=== PATIENT | male | born 1965 | race Caucasian/White ===

== ENCOUNTER 2019-08-03 19:17 | Emergency (ER) | payer SELFPAY ==
[2019-08-03 19:17] VITALS: BP 161/111; PULSE 90; RESP 16; TEMP 36.8; O2SAT 99; BMI 32.8
--- NOTE | 2019-08-03 19:57 | CT_ITS ---
STUDY: CT ABDOMEN AND PELVIS WITHOUT CONTRAST REASON FOR EXAM: Male, 54 years old. Flank pain RADIATION DOSAGE (If Supplied By Facility): DLP = ( 1060.52 ) mGycm TECHNIQUE: Transaxial images were obtained from the dome of the diaphragm to the symphysis pubis without oral contrast, and without intravenous contrast. Sagittal and coronal images were reconstructed. Individualized dose optimization techniques were used for this CT. COMPARISON: None. FINDINGS: Evaluation of the abdominal viscera is limited in the absence of intravenous contrast. The visualized lung bases are clear. The visualized portions of the heart and pericardium are within normal limits. The gallbladder contains gallstones. There is decreased hepatic attenuation. No hepatic lesions are present. The spleen is normal in size. The pancreas demonstrates an unremarkable unenhanced appearance. The adrenal glands are within normal limits. There is a 4 mm obstructing left proximal ureteral stone with associated moderate to prominent hydroureteronephrosis. The right kidney is normal in appearance. Normal visualized stomach. There is no bowel obstruction or inflammation. Partial colon resection noted. The appendix is not visualized, but there are no findings to suggest acute appendicitis. The aorta is normal in caliber. There is no abdominal or pelvic free air, free fluid, fluid collection or lymphadenopathy. There are no destructive osseous lesions. CT/Abdomen/Pelvis without Cont IMPRESSION: 4 mm obstructing left proximal ureteral stone with associated moderate to prominent hydroureteronephrosis. Gallstones. Electronically Signed: Xu Owen, at 20:59 EDT Tel , Service support ,
[2019-08-03 20:13] LABS: Absolute Lymphocyte Count 2.64 X10^3/uL (0.83-4.51); Absolute Neutrophil Count 4.5 X10^3/uL (2.0-7.7); Basophil# 0.06 X10^3/uL; Basophil% 0.7 % (0-1); Eosinophil# 0.18 X10^3/uL; Eosinophils% 2.2 % (0-5); Hematocrit 43.8 % (40-54); Hemoglobin 14.6 g/dL (13.0-16.5); Lymphocyte # 2.64 X10^3/ul (4.0); Lymphocyte % 32.9 % (19-41); Mean Corp Hgb Conc 33.3 g/dL (32-36); Mean Corpuscular Volume 90.1 fL (80-94); Mean Platelet Vol. 9.5 fl (6.2-12.0); Monocyte# 0.66 X10^3/uL; Monocyte% 8.2 % (0-10); NRBC Flagged by Analyzer 0 % (0-5); Neutrophil # 4.45 X10^3/uL (2.7-7.7); Neutrophil % 55.6 % (47-70); Platelet Count 258 K/mm3 (150-450); RBC Distribution Width CV 13.3 % (11.6-14.6); Red Blood Count 4.86 M/mm3 (4.6-6.2)
[2019-08-03] MEDS: Ondansetron 4 MG/2 ML Vial IV (20:20)
[2019-08-03] MEDS: Morphine 4 MG/ML Syringe IV (20:20)
[2019-08-03] MEDS: Ketorolac 30 MG/ML Syringe IV (20:20)
[2019-08-03] MEDS: 0.9% Normal Saline 1,000 ML 250 ML IV (20:20)
[2019-08-03 20:26] LABS: Anion Gap 7 (5-15); BUN 14 mg/dL (7-18); Calcium,Total 9.4 mg/dL (8.5-10.1); Chloride 110 mmol/L (98-107); Creatinine, Serum 1.55 mg/dL (0.70-1.30); EST Glomerular Filtration Rate 50 mL/min (>60); Est Glom Filt Rate - Afr Amer 60 mL/min (>60); Glucose 139 mg/dL (74-106); Potassium 3.9 mmol/L (3.5-5.1); Sodium Level 142 mmol/L (136-145)
[2019-08-03 21:15] LABS: Bacteria 0 SEEN /hpf (None Seen); Mucous, Urine 0 SEEN /hpf (<or=2+)
[2019-08-03 21:17] VITALS: BP 145/89; PULSE 83; RESP 15; O2SAT 96
[2019-08-03 21:18] LABS: Color, Urine Yellow (Yellow); Glucose, Dipstick Normal (Normal); Ketone-Dipstick Negative (Negative); Leukocyte Esterase-Dipstick 25 /ul (Negative); Nitrite-Dipstick Negative (Negative); Occult Blood-Urine 250 /ul (Negative); Protein-Dipstick 30 mg/dl (Negative); Specific Gravity, Urine 1.025 (1.002-1.030); Urine Bilirubin Dipstick Negative (Negative); Urine Clarity Cloudy (Clear); Urine Urobilinogen Normal (Normal)
[2019-08-03 21:25] LABS: White Blood Cells 0-5 SEEN /hpf (0-5)
[2019-08-03 21:26] LABS: Red Blood Cells-Urine 50-100 SEEN /hpf (0-5); Squamous Epithelial Cells - UA 0-5 SEEN /hpf (0-5)
--- NOTE | 2019-08-03 21:41 | ED.DCSUM_ITS ---
- ER Visit Summary Date of Service: 08/03/19 Chief Complaint: Flank pain History of Present Illness: The patient is a 54 M who states that today is sudden onset of left flank pain sharp and stabbing and severe. He said nausea. He has not had symptoms like this before. He does have a history of diverticul itis and states that this is different. He notes his urine has been darker than normal today. Physical Examination: Afebrile vital signs stable Gen: Well-nourished well-developed she appears quite uncomfortable Head: Normocephalic atraumatic Eyes: Perrl EOMI ENT: TMs clear no rhinorrhea moist mucous membranes Neck: Supple no lymphadenopathy no JVD nontender CVS: Regular rate rhythm no murmurs normal S1-S2 Respiratory: No distress clear to auscultation bilaterally chest nontender Abdomen: Soft nontender nondistended normal bowel sounds no masses Back: Nontender Extremity: Nontender no edema Skin: Normal color no rash Neuro: alert orientated ?3 CN II-XII intact normal strength sensation Psych: Normal affect normal mood Test Results: CBC normal. Chemistry showed a creatinine 1.55 glucose 139. Urinalysis 50-[address] of the flank demonstrated a 4 mm proximal stone with moderate hydronephroureter. Emergency Department Course and Treatment: Patient received IV fluids morphine Zofran and Toradol. He is significantly improved. I spoke with Dr. Dukes who will be happy to follow-up with the patient. I will write for oxycodone and Zofran. Patient will return if his pain is not controlled. Impression: 1. Left 4 mm proximal ureteral stone with colic 2. Hydronephroureter This note was generated with [employer] dictation software. It may contain incorrect words, spelling, and punctuation that were not noted in review of the chart prior to signing ED Disposition - Plan for ED Patient: Disposition: Home or Assisted Living Instructions: KIDNEY STONE w/ Colic Prescriptions: Oxycodone [Oxyir] 5 - 10 mg PO Q6H PRN PRN 3 Days #20 tab PRN Reason: pain Prescription Printed Ondansetron [Zofran Odt] 4 mg PO Q6H PRN PRN #12 tab PRN Reason: Nausea Prescription Printed Referrals: Cricket Dukes MD [STAFF PHYSICIAN] - (call the office to obtain an appointment to be seen on . Inform his office staff that we discussed the appointment with Dr. Ernst bui.)
[2019-08-03 21:49] VITALS: RESP 16
== END 2019-08-03 21:54 | disposition home or self-care (01) ==
PROVIDERS: Emergency Provider Emergency Medicine
DX: N13.2 Hydronephrosis with renal and ureteral calculous obstruction (principal); Z87.19 Personal history of other diseases of the digestive system
CPT/HCPCS: 74176; 80048; 81001; 85025; 96361; 96374; 96375; 99283; J7030; A4216; J2405

== ENCOUNTER → 2019-08-09 16:48 | Outpatient (CLI) | payer SELFPAY ==
[2019-08-03 19:17] VITALS: BMI 32.8
--- NOTE | 2019-08-09 17:00 | RAD_ITS ---
STUDY: X-RAY - ABDOMEN/PELVIS REASON FOR EXAM: Male, 54 years old. Left-sided kidney stone TECHNIQUE: 2 views of the abdomen were performed COMPARISON: 03 August 2019 FINDINGS: Normal visualized lung bases. Left small ureteral calculus is not well seen. There is possible progression down to the distal ureter/UVJ versus phlebolith. There is an unremarkable bowel gas pattern. There is no demonstrated free abdominal air. The visualized liver, spleen and kidneys are grossly normal in size and morphology. There is surgical suture lines in the pelvis. Normal soft tissue structures. Normal visualized osseous structures. RAD/Abdomen Single View IMPRESSION: Questionable visualization of the left ureteral calculus now at the UVJ. Prior pelvic intestinal surgery. Electronically Signed: Germaine Cote, at 17:20 EDT Tel , Service support ,
== END ==
PROVIDERS: Referring Provider Urology; Visit Provider Urology
DX: N20.0 Calculus of kidney (principal)
CPT/HCPCS: 74018

== ENCOUNTER → 2019-08-11 10:03 | Outpatient (CLI) | payer SELFPAY ==
[2019-08-03 19:17] VITALS: BMI 32.8
== END ==
PROVIDERS: Referring Provider Urology; Visit Provider Urology
DX: Z00.00 Encounter for general adult medical examination without abnormal findings (principal)

== ENCOUNTER 2019-08-15 18:38 | Emergency (ER) | payer OTHER, SELFPAY ==
[2019-08-15 18:39] VITALS: BP 153/84; PULSE 76; RESP 20; TEMP 37.4; O2SAT 96; BMI 32.1
[2019-08-15 19:13] LABS: Bacteria 0 SEEN /hpf (None Seen); White Blood Cells 0 SEEN /hpf (0-5)
[2019-08-15 19:32] LABS: Color, Urine Yellow (Yellow); Glucose, Dipstick Normal (Normal); Ketone-Dipstick Negative (Negative); Leukocyte Esterase-Dipstick Negative /ul (Negative); Nitrite-Dipstick Negative (Negative); Occult Blood-Urine 10 /ul (Negative); Protein-Dipstick 15 mg/dl (Negative); Specific Gravity, Urine 1.025 (1.002-1.030); Urine Bilirubin Dipstick Negative (Negative); Urine Clarity Clear (Clear); Urine Urobilinogen Normal (Normal)
--- NOTE | 2019-08-15 19:37 | CT_ITS ---
STUDY: CT ABDOMEN AND PELVIS WITHOUT CONTRAST REASON FOR EXAM: Male, 54 years old. Left flank pain. Dysuria. Partial colonic resection. RADIATION DOSAGE (If Supplied By Facility): CTDIvol = ( 12.24 ) mGy, DLP = ( 767.77 ) mGycm TECHNIQUE: Transaxial images were obtained from the dome of the diaphragm to the symphysis pubis without oral contrast, and without intravenous contrast. Sagittal and coronal images were reconstructed. Individualized dose optimization techniques were used for this CT. COMPARISON: August 03, 2019. FINDINGS: Lung bases: Left lung base granuloma. Mild dependent changes. Heart: Mild cardiomegaly. Liver: Hepatic steatosis. Hepatic granuloma. Gallbladder/biliary ducts: Gallstones. No acute process. Pancreas: Pancreatic atrophy. Spleen: Unremarkable. Adrenal glands: Unremarkable. Kidneys/ureters/bladder: 4 mm stone at the left ureterovesicular junction (axial image 176 series 2) with mild/moderate left hydroureteronephrosis. Mild left perinephric fat stranding. Cannot definitively exclude small left parapelvic cysts. Mild left periureteral fat stranding. Underdistended urinary bladder. Normal right ureter. Normal right kidney. Prostate: Punctate prostate calcification. Large bowel/small bowel: Partial colonic resection. No acute process. Appendix: Surgically absent. Gastroesophageal junction/stomach: Unremarkable. Retroperitoneum/lymph nodes: No intra-abdominal free air. No ascites. No pathologically enlarged lymph nodes. Vascular: Vascular calcifications. No aneurysm. Osseous structures: Mild degenerative changes. No acute process. Subcutaneous/soft tissues: Fat-containing ventral hernia (axial image 114 series 2). Fat-containing inguinal hernias. No acute process. CT/Abdomen/Pelvis without Cont IMPRESSION: Left 4 mm UVJ stone with mild/moderate hydroureteronephrosis (distal progression from prior exam) Left perinephric/periureteral fat stranding (possible infection; correlate urinalysis) Additional nonemergent/chronic findings, as above Electronically Signed: Mazin Hernández DO at 20:49 EDT Tel , Service support ,
[2019-08-15 19:46] LABS: Mucous, Urine RARE /hpf (<or=2+); Red Blood Cells-Urine 0-5 SEEN /hpf (0-5); Squamous Epithelial Cells - UA 0-5 SEEN /hpf (0-5)
[2019-08-15] MEDS: Ondansetron 4 MG/2 ML Vial IV (19:46)
[2019-08-15] MEDS: Ketorolac 30 MG/ML Syringe IV (19:47)
[2019-08-15] MEDS: Morphine 4 MG/ML Syringe IV ×2 (19:48→21:19)
[2019-08-15 19:50] VITALS: RESP 20
[2019-08-15] MEDS: 0.9% Normal Saline 1,000 ML 125 ML IV (19:50)
[2019-08-15 19:58] LABS: Absolute Lymphocyte Count 1.52 X10^3/uL (0.83-4.51); Absolute Neutrophil Count 4.8 X10^3/uL (2.0-7.7); Basophil# 0.06 X10^3/uL; Basophil% 0.8 % (0-1); Eosinophil# 0.12 X10^3/uL; Eosinophils% 1.7 % (0-5); Hematocrit 41.8 % (40-54); Hemoglobin 13.7 g/dL (13.0-16.5); Lymphocyte # 1.52 X10^3/ul (4.0); Lymphocyte % 21.4 % (19-41); Mean Corp Hgb Conc 32.8 g/dL (32-36); Mean Corpuscular Volume 91.7 fL (80-94); Mean Platelet Vol. 9.7 fl (6.2-12.0); Monocyte# 0.55 X10^3/uL; Monocyte% 7.7 % (0-10); NRBC Flagged by Analyzer 0 % (0-5); Neutrophil # 4.82 X10^3/uL (2.7-7.7); Neutrophil % 67.8 % (47-70); Platelet Count 245 K/mm3 (150-450); RBC Distribution Width CV 12.9 % (11.6-14.6); RBC Distribution Width SD 43.5 fl (35.1-43.9); Red Blood Count 4.56 M/mm3 (4.6-6.2); White Blood Count 7.1 K/mm3 (4.4-11.0)
[2019-08-15 20:12] LABS: Anion Gap 6 (5-15); BUN 19 mg/dL (7-18); Calcium,Total 9.2 mg/dL (8.5-10.1); Chloride 107 mmol/L (98-107); Creatinine, Serum 1.58 mg/dL (0.70-1.30); EST Glomerular Filtration Rate 49 mL/min (>60); Est Glom Filt Rate - Afr Amer 59 mL/min (>60); Estimated Creatinine Clearance 56.26 ml/min; Glucose 148 mg/dL (74-106); Potassium 4.1 mmol/L (3.5-5.1); Sodium Level 143 mmol/L (136-145)
[2019-08-15 20:32] VITALS: BP 150/87; PULSE 83; RESP 16
--- NOTE | 2019-08-15 21:06 | ED.VISSUMM ---
- ER Visit Summary Date of Service: 08/15/19 Chief Complaint: [Flank pain] History of Present Illness: The patient is a 54 M [to the emergency department complaint of flank pain that he has had for about 2 weeks. Patient was diagnosed with a kidney stone 2 weeks ago it was 4 mm at the U PJ. Patient followed up with urology and had a KUB that showed progression of the stone towards the pelvis. Patient states that he was doing well for about a week with 2 days ago started having more severe pain on the left side. He denies any fever. He denies nausea or vomiting. Patient otherwise has no medical history.] Physical Examination: [HEENT-PERRLA, EOMI. Cranial nerves II through XII grossly intact. TMs clear. Mucous membranes moist. No adenopathy. Cardiovascular-regular rate and rhythm without murmur or ectopy Lungs-clear to auscultation, chest wall stable without crepitus or subcu emphysema Abdomen-normoactive bowel sounds, soft area patient has tenderness palpation over left lower quadrant with some guarding. Patient has CVA tenderness on the left. There is no rebound, rigidity, or perineal signs. Extremities-intact ?4, normal range of motion, normal pulses, atraumatic] Test Results: [CBC with differential white count 7.1, hemoglobin 13.7, hematocrit 42, platelets 245. Chemistries unremarkable. BUN was 14 and creatinine 1.58. Urinalysis showed no signs of infection and 0-[address] flank showed a right UVJ stone measuring 4 mm with left perinephric stranding and left moderate hydronephrosis.] Emergency Department Course and Treatment: [Patient was medicated with Toradol, morphine, and Zofran. Patient had good pain relief with that. He currently rates his pain as a 3 out of 10. Case was discussed with who asked to be discharged patient to home with prescription for Toradol as he already has oxycodone. Patient will be seen by the urologist tomorrow morning and then will be set up for surgery in 2 days.] Treatment Plan: [Follow-up with urology tomorrow. Patient advised to return if worsening pain, fever, vomiting, or conditions worsen anyway.] Disposition: [Discharged home in stable condition.] Impression: [Kidney stone with colic] This note was generated with Dragon dictation software. It may contain incorrect words, spelling, and punctuation that were not noted in review of the chart prior to signing ED Disposition - Plan for ED Patient: Referrals: Care Physician,No Primary [Primary Care Provider] -
--- NOTE | 2019-08-15 21:09 | ED.DEP ---
ED Disposition - Plan for ED Patient: Instructions: KIDNEY STONE w/ Colic Prescriptions: Ketorolac [Toradol] 10 mg PO Q6H PRN #30 tab PRN Reason: Pain Or Fever Prescription Printed Referrals: Care Physician,No Primary [Primary Care Provider] - Cricket Dukes MD [STAFF PHYSICIAN] - 1 Day
[2019-08-15 21:42] VITALS: BP 133/83; PULSE 72; RESP 16
== END 2019-08-15 21:43 | disposition home or self-care (01) ==
PROVIDERS: Emergency Provider Emergency Medicine
DX: N13.2 Hydronephrosis with renal and ureteral calculous obstruction (principal)
CPT/HCPCS: 74176; 80048; 81001; 85025; 96361; 96374; 96375; 96376; 99284; J7030; A4216; J2405

== ENCOUNTER 2019-08-18 09:42 | Day surgery (SDC) | payer SELFPAY ==
--- NOTE | 2019-08-18 10:10 | RAD_ITS ---
STUDY: X-RAY - ABDOMEN/PELVIS REASON FOR EXAM: Male, 54 years old. Abdominal pain. TECHNIQUE: Single AP view of the abdomen / pelvis. COMPARISON: Comparison is made with prior study dated August 09, 2019. FINDINGS: There is an unremarkable bowel gas pattern. Sutures are seen in the colorectal junction. The previously seen tiny calcification in the region of the left ureterovesical junction is not seen at this time. Normal soft tissue structures. Normal visualized osseous structures. RAD/Abdomen Single View IMPRESSION: The previously seen tiny calcification in the region of the left ureterovesical junction is not seen at this time. Electronically Signed: Rodríguez French, at 10:34 EDT , Service support ,
[2019-08-18 10:30] VITALS: BP 135/90; PULSE 71; RESP 16; TEMP 36.9; O2SAT 100; BMI 31.7
[2019-08-18] MEDS: Lactated Ringers 1,000 ML 75 ML IV ×2 (11:45→13:57)
[2019-08-18] MEDS: Cefazolin 2 GM in 0.9% Normal Saline 100 ML IV (12:54)
--- NOTE | 2019-08-18 13:47 | DCINST_ITS ---
Discharge Diet: Light diet - advance as tolerated Discharge Activity: Return to Normal Activity Call your doctor if your incision/area has: Sudden Increased Bleeding Call your doctor if you observe: Fever of 101 or Higher Suture Line Care: Avoid Pulling/Pushing, Avoid Pinching/Bending Allergies/Adverse Reactions: Allergies No Known Allergies Allergy (Verified 08/18/19 10:27) Medications to take at Discharge Ondansetron [Zofran Odt] 4 mg PO Q6H PRN PRN #12 tab 08/03/19 Ketorolac [Toradol] 10 mg PO Q6H PRN #30 tab 08/15/19 Oxycodone [Oxyir] 5 mg PO Q4H PRN PRN 08/15/19 Ciprofloxacin [Cipro] 500 mg PO BID #10 tab 08/18/19 Oxycodone HCl/Acetaminophen [Percocet 5/325] 1 tab PO Q6H PRN PRN 5 Days #10 tab 08/18/19 The following prescriptions were given: Ciprofloxacin [Cipro] 500 mg PO BID #10 tab Prescription Printed Oxycodone HCl/Acetaminophen [Percocet 5/325] 1 tab PO Q6H PRN PRN 5 Days #10 tab PRN Reason: Pain Score 1-5/10 Prescription Printed Primary Care Physician: Care Physician,No Primary [Primary Care Provider] - Test Results: Test results from this visit will be discussed in further detail at your follow- up appointment, if applicable. Please Follow Up With: Cricket Dukes MD When: please call to make an appointment.
--- NOTE | 2019-08-18 13:50 | OP.PCM_ITS ---
Report of Operation Date of Procedure: 08/18/19 Pre-Operative Diagnosis: Left ureteral calculi Post-Operative Diagnosis: The same Surgery/Procedure Performed:: Cystoscopy, left retrograde pyelogram, interpretation fluoroscopic images, balloon dilation of the left ureter, laser of stone, left stent placement. Description of Surgical Findings:: 54-year-old male was taken back to the operating room at the smooth induction of anesthesia he was placed in dorsolithotomy position the penis and testicles were prepped and draped in usual sterile fashion went into the bladder with a 21 Trin[place] rigid cystourethroscope identified the left ureteral orifice cannulated with a wire performed retrograde pyelogram and could see the fluoroscopic images that there appeared to be a stone still in the distal left ureter so then advanced a balloon dilator and balloon dilated the distal left ureter with a 12 Trin[place] 10 cm balloon dilator after this I went in with the ureteroscope with the wire in place and next the wire went in with a SlimLine ureteroscope was able to engage the stone I then use laser fiber the laser stone little tiny pieces floated into the bladder after the stone was completely lasered, I then to advance a wire up into the left kidney and over the wire place a stent 6 Trin[place] by 26 cm stent with a string on it. Patient bladder was drained patient anesthetic was reversed taken to PACU good condition plan to see him next week for cystoscopy and stent removal. Type of Anesthesia:: General Drains: stent left side - Admit VTE Documentation VTE Present on Admission: No VTE Mechan Device Prophylaxis: SCD's
[2019-08-18 13:52] VITALS: BP 135/90; PULSE 63; RESP 18; TEMP 36.6; O2SAT 95
[2019-08-18 14:00] VITALS: BP 123/84; BP 135/90; PULSE 54; RESP 18; O2SAT 96
[2019-08-18 14:15] VITALS: BP 123/82; BP 135/90; PULSE 57; RESP 18; O2SAT 94
[2019-08-18 14:30] VITALS: BP 128/88; BP 135/90; PULSE 53; RESP 18; TEMP 36.7; O2SAT 95
[2019-08-18 15:15] VITALS: BP 135/90; BP 136/90; PULSE 60; RESP 16; TEMP 36.4; O2SAT 97
== END 2019-08-18 15:30 | disposition home or self-care (01) ==
LOC: SDC 09:46 → AC 09:47
PROVIDERS: Referring Provider Urology; Visit Provider Urology
PROC: (CPT 52353; principal; 2019-08-18 11:55)
DX: N13.2 Hydronephrosis with renal and ureteral calculous obstruction (principal); K51.90 Ulcerative colitis, unspecified, without complications; Z87.442 Personal history of urinary calculi; Z90.49 Acquired absence of other specified parts of digestive tract; Z87.891 Personal history of nicotine dependence
CPT/HCPCS: 00873; 52356; 74018; 76000; J7120; C1769; C2617; J2405

== ENCOUNTER 2021-12-31 12:35 | Outpatient (CLI) | payer SELFPAY, OTHER ==
--- NOTE | 2021-12-31 13:19 | EKG12_ITS ---
Test Reason : PRE OP Blood Pressure : / mmHG Vent. Rate : 081 BPM Atrial Rate : 081 BPM P-R Int : 148 ms QRS Dur : 098 ms QT Int : 378 ms P-R-T Axes : 035 -43 027 degrees QTc Int : 439 ms Sinus rhythm with occasional Premature ventricular complexes Left axis deviation Abnormal ECG Confirmed by RENNY MORALES, JUAN DANIEL ([id number]), field map editor PAULINO ESTRADA ([id number]) on 01/01/2022 10:42:17 AM Referred By: Nicko Ramírez Confirmed By:JUAN DANIEL LAWSON MD
[2021-12-31 15:11] LABS: Absolute Lymphocyte Count 2.55 X10^3/uL (0.83-4.51); Absolute Neutrophil Count 3.4 X10^3/uL (2.0-7.7); Basophil# 0.06 X10^3/uL; Basophil% 0.9 % (0-1); Eosinophils% 2.9 % (0-5); Hematocrit 42.1 % (40-54); Hemoglobin 14.6 g/dL (13.0-16.5); Lymphocyte # 2.55 X10^3/ul (0.83-4.51); Lymphocyte % 37.1 % (19-41); Mean Corp Hgb Conc 34.7 g/dL (32-36); Mean Corpuscular Hgb 31.1 pg (27.0-32.0); Mean Corpuscular Volume 89.6 fL (80-94); Mean Platelet Vol. 10.1 fl (6.2-12.0); Monocyte# 0.64 X10^3/uL; Monocyte% 9.3 % (0-10); NRBC Flagged by Analyzer 0 % (0-5); Neutrophil # 3.41 X10^3/uL (2.7-7.7); Neutrophil % 49.5 % (47-70); Platelet Count 268 K/mm3 (150-450); RBC Distribution Width CV 12.9 % (11.6-14.6); RBC Distribution Width SD 42.7 fl (35.1-43.9); White Blood Count 6.9 K/mm3 (4.4-11.0)
[2021-12-31 15:41] LABS: Albumin, Serum 3.4 g/dL (3.2-5.0); Anion Gap 6 (5-15); BUN 18 mg/dL (7-18); BUN/Creat Ratio 15.8 RATIO (10-20); Calcium,Total 8.9 mg/dL (8.5-10.1); Chloride 106 mmol/L (98-107); Creatinine, Serum 1.14 mg/dL (0.70-1.30); EST Glomerular Filtration Rate 70 mL/min (>60); Est Glom Filt Rate - Afr Amer 85 mL/min (>60); Glucose 126 mg/dL (74-106); Potassium 3.8 mmol/L (3.5-5.1); Sodium Level 140 mmol/L (136-145)
== END 2021-12-31 23:59 | disposition home or self-care (01) ==
PROVIDERS: Referring Provider Physician Assistant Surgical; Visit Provider Physician Assistant Surgical
DX: Z01.810 Encounter for preprocedural cardiovascular examination (principal); Z01.818 Encounter for other preprocedural examination; Z11.59 Encounter for screening for other viral diseases
CPT/HCPCS: 36415; 80048; 82040; 85025; 87426; 93005; C9803

== ENCOUNTER 2024-11-10 09:28 | Emergency (ER) | payer OTHER, SELFPAY ==
[2024-11-10 09:29] VITALS: BP 136/93; PULSE 98; RESP 20; TEMP 36.8; O2SAT 93; BMI 34.3
--- NOTE | 2024-11-10 09:42 | EKG12_ITS ---
Test Reason : SYNCOPE Blood Pressure : */* mmHG Vent. Rate : 101 BPM Atrial Rate : 101 BPM P-R Int : 140 ms QRS Dur : 92 ms QT Int : 352 ms P-R-T Axes : 16 -60 15 degrees QTcB Int : 456 ms Sinus tachycardia with occasional Premature ventricular complexes Incomplete right bundle branch block Left anterior fascicular block Abnormal ECG Confirmed by Sridhar Gallego ([id number]), desk editor PAULINO ESTRADA ([id number]) on 11/11/2024 10:17:29 AM Referred By: RUDY Confirmed By: Sridhar Gallego
--- NOTE | 2024-11-10 09:42 | EX.ED.DYSGE1 ---
HPI History of Present Illness Chief Complaint: Syncope Informant: patient, spouse/S.O. and EMS Narrative Narrative: 67-year-old male presenting to the emergency room with near syncopal episode. Patient states that during the night hours he had diarrhea. This morning he ate a light breakfast and went into work. He states he was standing talking when he suddenly felt near syncopal. He denies any abdominal pain or cramping during that time. There is noted that he looked rather [place] and sweaty. He did not pass out. He states now he is feeling okay like he can get up and get going. He denies any chest pain palpitations or shortness of breath. [facility] Medical History Ileostomy care Kidney stones Home Medications ?Medication ?Instructions ?Recorded ?Last Taken ?Type NK 11/10/24 Unknown History Allergy/AdvReac Type Severity Reaction Status Date / Time No Known Allergies Allergy Verified 11/10/24 09:34 Surgical History History of hip surgery Social History Smoking Status: Former smoker ROS ROS ED Constitutional Constitutional ED: Denies chills, fever(s) or weight loss Eyes Eyes: Denies change in vision or diplopia ENT ENT ED: Denies ear pain, rhinorrhea or sore throat Cardiovascular Cardiovascular: Reports other Details: Near syncope ; Denies chest pain, orthopnea, palpitations or racing heartbeat Respiratory/Chest Respiratory/Chest: Denies cough, dyspnea or orthopnea Gastrointestinal Gastrointestinal: Reports diarrhea; Denies abdominal pain, nausea or vomiting Genitourinary Genitourinary ED: Denies dysuria, hematuria or urinary frequency Musculoskeletal Musculoskeletal: Denies arthralgias or myalgias Integumentary Denies abscess or rash Neurologic Neurologic: Denies headache(s) or weakness Psychiatric Psychiatric: Denies anxiety, depression, suicidal ideation or suicidal thoughts Endocrine Endocrinology: Denies polydipsia, polyphagia or polyuria Allergic/Immunologic Allergic/Immunologic ED: Denies mouth swelling, tongue swelling or urticaria EXAM Physical Exam Const Vital Signs: 11/10/24 09:29 11/10/24 09:36 11/10/24 10:29 Temperature 98.3 F Temperature Source Oral Pulse Rate 98 Pulse Rate [Lying] Pulse Rate [Sitting (for 1 minute prior to obtaining)] Pulse Rate [Standing (for 1 minute prior to obtaining)] Respiratory Rate 20 H Respiratory Pattern Normal Blood Pressure 136/93 H 118/62 Blood Pressure [Lying] Blood Pressure [Sitting (for 1 minute prior to obtaining)] Blood Pressure [Standing (for 1 minute prior to obtaining)] Blood Pressure Mean 107 80 Blood Pressure Mean [Lying] Blood Pressure Mean [Sitting (for 1 minute prior to obtaining)] Blood Pressure Mean [Standing (for 1 minute prior to obtaining)] Pulse Ox 93 92 Oxygen Delivery Method Room Air 11/10/24 10:50 11/10/24 12:00 11/10/24 12:52 Temperature Temperature Source Pulse Rate Pulse Rate [Lying] 98 86 Pulse Rate [Sitting (for 1 minute prior to obtaining)] 100 79 Pulse Rate [Standing (for 1 minute prior to obtaining)] 67 Respiratory Rate Respiratory Pattern Blood Pressure 139/90 H Blood Pressure [Lying] 138/98 H 150/90 H Blood Pressure [Sitting (for 1 minute prior to obtaining)] 131/92 H 147/94 H Blood Pressure [Standing (for 1 minute prior to obtaining)] 82/61 L 135/93 H Blood Pressure Mean 106 Blood Pressure Mean [Lying] 111 110 Blood Pressure Mean [Sitting (for 1 minute prior to obtaining)] 105 111 Blood Pressure Mean [Standing (for 1 minute prior to obtaining)] 68 107 Pulse Ox Oxygen Delivery Method 11/10/24 12:59 Temperature 97.8 F Temperature Source Pulse Rate 69 Pulse Rate [Lying] Pulse Rate [Sitting (for 1 minute prior to obtaining)] Pulse Rate [Standing (for 1 minute prior to obtaining)] Respiratory Rate 20 H Respiratory Pattern Blood Pressure 137/95 H Blood Pressure [Lying] Blood Pressure [Sitting (for 1 minute prior to obtaining)] Blood Pressure [Standing (for 1 minute prior to obtaining)] Blood Pressure Mean 109 Blood Pressure Mean [Lying] Blood Pressure Mean [Sitting (for 1 minute prior to obtaining)] Blood Pressure Mean [Standing (for 1 minute prior to obtaining)] Pulse Ox 100 Oxygen Delivery Method MDM MDM MDM Narrative Medical decision making narrative: Differential diagnosis includes but not limited to dehydration electrolyte abnormalities vasovagal near syncope cardiac syncope/dysrhythmia Patient does have some orthostatic hypotension. He received a liter of IV fluids and the orthostatic symptoms have resolved. My independent interpretation of the chest x-ray is normal mediastinal silhouette no acute process. White count 11.5 hemoglobin of 17.8 platelet count is 256. BMP shows a creatinine 1.5 glucose 184. Troponin is 6. Patient's had no events on the monitor her heart rate has been down into the 90s which he states is normal for him. Patient presented with near syncope with no complaints of palpitations chest pain or shortness of breath in the setting of a diarrheal illness. This most likely vasovagal. I do not see a strong reason to admit him for observation. He is comfortable going home will return if symptoms return or he worsens. History & Record Review Discussion w/independent historian: EMS personnel, Patient and Significant other Lab Data Attestation: I reviewed the patient's lab results. Labs: Laboratory Results - last 24 hr 11/10/24 11/10/24 09:15 11:20 WBC 11.5 H RBC 5.90 Hgb 17.8 H Hct 53.5 MCV 90.7 MCH 30.2 MCHC 33.3 RDW Std Deviation 43.4 RDW Coeff of Torres 13.0 Plt Count 256 MPV 10.3 Immature Gran % (Auto) 0.400 Neut % (Auto) 70.8 H Lymph % (Auto) 19.5 [place] % (Auto) 6.2 Eos % (Auto) 2.4 Baso % (Auto) 0.7 Absolute Neuts (auto) 8.1 H Absolute Lymphs (auto) 2.24 Nucleated RBC % 0 Sodium 138 Potassium 4.3 Chloride 106 Carbon Dioxide 26.0 Anion Gap 6 BUN 13 Creatinine 1.50 H Estim Creat Clear Calc 66.59 Est GFR (MDRD) Af Amer 61 Est GFR (MDRD) Non-Af 51 L BUN/Creatinine Ratio 8.7 L Glucose 184 H Calcium 10.5 H Troponin I High Sens 6 4 Radiography Diagnostic Testing: Clinical Impression(s) from Imaging Studies Chest X-Ray 11/10/24 09:45 IMPRESSION: No radiographic evidence of acute cardiopulmonary disease. Electronically Signed: Last Pascual MD at 9:56 EST , EKG Initial EKG: Attestation: I personally reviewed and interpreted this EKG as follows: Comments: Sinus tachycardia with ventricular rate of [address] segments. Discharge Plan Triage Chief Complaint: Syncope ED Provider: Ezequiel Hawthorne Dx/Rx/DC Orders Clinical Impression: Near syncope, Diarrhea Instructions: ED Near-Fainting, Uncertain Cause Prescriptions: No Action NK Primary Care Provider: Care Physician,No Primary Referrals: Care Physician,No Primary [Primary Care Provider] - Print Language: Polish Disposition Disposition: Home, Self Care Discharge Date/Time: 11/10/24 13:04
--- NOTE | 2024-11-10 09:45 | RAD_ITS ---
EXAM: XR CHEST, 1 VIEW CLINICAL INDICATION: near syncope TECHNIQUE: Frontal view of the chest. COMPARISON: No relevant prior studies available. FINDINGS: LUNGS AND PLEURAL SPACES: Unremarkable. No consolidation or edema. No pneumothorax. No effusion. HEART: Unremarkable. Cardiac silhouette not enlarged. MEDIASTINUM: Central airways and mediastinal contour are unremarkable. BONES/JOINTS: Unremarkable. No acute fracture. SOFT TISSUES: Unremarkable. RAD/Chest 1 View (Portable) IMPRESSION: No radiographic evidence of acute cardiopulmonary disease. Electronically Signed: Last Pascual MD at 9:56 EST ,
[2024-11-10 09:52] LABS: Absolute Lymphocyte Count 2.24 X10^3/uL (0.83-4.51); Absolute Neutrophil Count 8.1 X10^3/uL (2.0-7.7); Basophil# 0.08 X10^3/uL; Basophil% 0.7 % (0-1); Eosinophil# 0.28 X10^3/uL; Eosinophils% 2.4 % (0-5); Hematocrit 53.5 % (40-54); Hemoglobin 17.8 g/dL (13.0-16.5); Lymphocyte # 2.24 X10^3/ul (0.83-4.51); Lymphocyte % 19.5 % (19-41); Mean Corp Hgb Conc 33.3 g/dL (32-36); Mean Corpuscular Hgb 30.2 pg (27.0-32.0); Mean Corpuscular Volume 90.7 fL (80-94); Mean Platelet Vol. 10.3 fl (6.2-12.0); Monocyte# 0.71 X10^3/uL; Monocyte% 6.2 % (0-10); NRBC Flagged by Analyzer 0 % (0-5); Neutrophil # 8.13 X10^3/uL (2.7-7.7); Neutrophil % 70.8 % (47-70); Platelet Count 256 K/mm3 (150-450); RBC Distribution Width SD 43.4 fl (35.1-43.9); White Blood Count 11.5 K/mm3 (4.4-11.0)
[2024-11-10 10:29] VITALS: BP 118/62; O2SAT 92
[2024-11-10 10:35] LABS: Anion Gap 6 (5-15); BUN 13 mg/dL (7-18); BUN/Creat Ratio 8.7 RATIO (10-20); Calcium,Total 10.5 mg/dL (8.5-10.1); Chloride 106 mmol/L (98-107); EST Glomerular Filtration Rate 51 mL/min (>60); Est Glom Filt Rate - Afr Amer 61 mL/min (>60); Estimated Creatinine Clearance 66.59 ml/min; Glucose 184 mg/dL (74-106); Potassium 4.3 mmol/L (3.5-5.1); Sodium Level 138 mmol/L (136-145); Troponin-I HS (w/2H Reflex) 6 pg/mL (3.0-78.0)
[2024-11-10 10:50] VITALS: BP 131/92; BP 138/98; BP 82/61; PULSE 100; PULSE 98
[2024-11-10] MEDS: 0.9% Normal Saline (1000mL) 1,000 ML 999 ML IV (10:57)
[2024-11-10 11:46] LABS: Reflex Troponin-HS? (from REC) Y
[2024-11-10 12:00] VITALS: BP 139/90
[2024-11-10 12:17] LABS: Troponin-I HS 4 pg/mL (3.0-78.0)
[2024-11-10 12:52] VITALS: BP 135/93; BP 147/94; BP 150/90; PULSE 67; PULSE 79; PULSE 86
[2024-11-10 12:59] VITALS: BP 137/95; PULSE 69; RESP 20; TEMP 36.6; O2SAT 100
--- NOTE | 2024-11-10 13:00 | ED.RN ---
pt. states he felt much better upon 2nd set of Orthostatic vitals and he was ready to be discharge. Pt. educated on slow position changes and hydration at home
== END 2024-11-10 13:04 | disposition home or self-care (01) ==
PROVIDERS: Emergency Provider Emergency Medicine; Visit Provider Emergency Medicine
DX: R55 Syncope and collapse (principal); R19.7 Diarrhea, unspecified; Z87.891 Personal history of nicotine dependence
CPT/HCPCS: 71045; 80048; 84484; 85025; 93005; 96360; 99285